=== PATIENT | male | born 1980 | race Two or more races ===

== ENCOUNTER 2020-05-27 13:07 | Inpatient (IN) | payer OTHER ==
[2020-05-27] MEDS ORDERED: BISMUTH SUBSALICYLATE 524 MG/30 ML UD PO PRN (19:29)
[2020-05-27] MEDS ORDERED: MAGNESIUM CITRATE 300 ML BOTTLE PO PRN (19:29)
[2020-05-27] MEDS ORDERED: MAGNESIUM HYDROX 2400MG/30ML ORAL SUSPENSION 30 ML CUP PO PRN (19:29)
[2020-05-27] MEDS ORDERED: ACETAMINOPHEN 325 MG TABLET (FP) PO PRN ×2 (19:29)
[2020-05-27] MEDS ORDERED: MENTHOL/PHENOL 1 EACH UD MM PRN (19:29)
[2020-05-27] MEDS ORDERED: ONDANSETRON *ODT* 4 MG TABLET SL PRN (19:29)
[2020-05-27] MEDS ORDERED: chlordiazePOXIDE HCL 25 MG CAPSULE PO PRN (19:29)
[2020-05-27] MEDS ORDERED: METHOCARBAMOL 500 MG TABLET PO PRN (19:29)
[2020-05-27 19:31] VITALS: BMI 35.1
[2020-05-27] MEDS: chlordiazePOXIDE HCL 25 MG CAPSULE PO SCH (22:21)
[2020-05-27] MEDS: THIAMINE HCL 100 MG TABLET (FP) PO SCH (22:22)
[2020-05-27] MEDS: hydrOXYzine PAMOATE 25 MG CAPSULE (FP) PO SCH (22:22)
[2020-05-27] MEDS: MELATONIN 5 MG TABLETS PO SCH (22:22)
[2020-05-28] MEDS ORDERED: METHADONE PO ONE (06:00)
[2020-05-28] MEDS ORDERED: METHADONE HCL 10 MG TABLET PO ONE (06:00)
[2020-05-28] MEDS: chlordiazePOXIDE HCL 25 MG CAPSULE PO SCH ×4 (06:49→22:26)
[2020-05-28] MEDS: hydrOXYzine PAMOATE 25 MG CAPSULE (FP) PO SCH ×5 (06:50→22:26)
[2020-05-28] MEDS ORDERED: METHADONE HCL 5 MG TABLET ONE (07:27)
[2020-05-28] MEDS ORDERED: METHADONE HCL 40 MG DISPERSABLE TABLET ONE (07:27)
[2020-05-28] MEDS ORDERED: METHADONE HCL 10 MG TABLET ONE (07:27)
[2020-05-28] MEDS ORDERED: METHADONE 80 MG, METHADONE 20 MG, METHADONE 5 MG PO ONE (07:30)
[2020-05-28] MEDS: PRENATAL VITAMINS W/ FOLIC ACID TABLET (FP) PO SCH (10:19)
[2020-05-28 12:45] LABS: HEMATOCRIT 37.1 % (35.4-49); HEMOGLOBIN 12.3 GM/dL (11.7-16.9); MCH 26.8 pg (25.7-33.7); MCHC 33.1 g/dl (32.0-35.9); MEAN CELL VOLUME 81.1 fl (80-96); MEAN PLT VOLUME 9.2 fl (7.5-11.1); PLATELET COUNT 263 K/MM3 (134-434); RBC 4.58 M/mm3 (4.00-5.60)
[2020-05-28 12:48] LABS: POTASSIUM 3.8 mmol/L (3.5-5.1)
[2020-05-28 12:49] LABS: CALCIUM 8.6 mg/dL (8.5-10.1)
[2020-05-28 12:50] LABS: ALBUMIN 3.1 g/dl (3.4-5.0); BLOOD UREA NITROGEN 9.4 mg/dL (7-18)
[2020-05-28 12:53] LABS: CREATININE 0.9 mg/dL (0.55-1.3)
[2020-05-28 12:55] LABS: BILIRUBIN,TOTAL 0.2 mg/dL (0.2-1); TOT PROT 7.4 g/dl (6.4-8.2)
[2020-05-28] MEDS: MELATONIN 5 MG TABLETS PO SCH (22:26)
[2020-05-28] MEDS: THIAMINE HCL 100 MG TABLET (FP) PO SCH (22:26)
[2020-05-29] MEDS ORDERED: METHADONE HCL 10 MG TABLET ONE (04:11)
[2020-05-29] MEDS ORDERED: METHADONE HCL 40 MG DISPERSABLE TABLET ONE (04:11)
[2020-05-29] MEDS ORDERED: METHADONE HCL 5 MG TABLET ONE (04:12)
[2020-05-29] MEDS ORDERED: chlordiazePOXIDE HCL 25 MG CAPSULE PO SCH (05:00)
[2020-05-29] MEDS: hydrOXYzine PAMOATE 25 MG CAPSULE (FP) PO SCH ×5 (05:49→22:03)
[2020-05-29] MEDS ORDERED: METHADONE HCL 10 MG TABLET PO ONE (06:00)
[2020-05-29] MEDS ORDERED: METHADONE 80 MG, METHADONE 20 MG, METHADONE 5 MG PO ONE (06:00)
[2020-05-29] MEDS ORDERED: METHADONE PO ONE (06:00)
[2020-05-29] MEDS: PRENATAL VITAMINS W/ FOLIC ACID TABLET (FP) PO SCH (10:01)
[2020-05-29] MEDS: diazePAM 5 MG TABLET PO SCH ×3 (10:02→22:03)
[2020-05-29] MEDS: NICOTINE POLACRILEX 2 MG GUM BUC PRN ×3 (11:33→19:19)
[2020-05-29] MEDS: diazePAM 5 MG TABLET PO PRN (14:19)
[2020-05-29] MEDS: THIAMINE HCL 100 MG TABLET (FP) PO SCH (22:02)
[2020-05-29] MEDS: MELATONIN 5 MG TABLETS PO SCH (22:02)
[2020-05-30] MEDS ORDERED: chlordiazePOXIDE HCL 10 MG CAPSULE PO PRN
[2020-05-30] MEDS ORDERED: chlordiazePOXIDE HCL 10 MG CAPSULE PO SCH (05:00)
[2020-05-30] MEDS: diazePAM 5 MG TABLET PO SCH ×4 (05:58→22:05)
[2020-05-30] MEDS: hydrOXYzine PAMOATE 25 MG CAPSULE (FP) PO SCH ×5 (05:59→22:04)
[2020-05-30] MEDS ORDERED: METHADONE HCL 10 MG TABLET PO SCH (08:30)
[2020-05-30] MEDS ORDERED: METHADONE HCL 10 MG TABLET ONE (08:44)
[2020-05-30] MEDS ORDERED: METHADONE HCL 40 MG DISPERSABLE TABLET ONE (08:46)
[2020-05-30] MEDS ORDERED: METHADONE HCL 5 MG TABLET ONE (08:47)
[2020-05-30] MEDS: METHADONE 80 MG, METHADONE 20 MG, METHADONE 5 MG PO SCH (08:48)
[2020-05-30] MEDS: PRENATAL VITAMINS W/ FOLIC ACID TABLET (FP) PO SCH (10:05)
[2020-05-30] MEDS: NICOTINE POLACRILEX 2 MG GUM BUC PRN ×2 (10:28→13:41)
[2020-05-30] MEDS: diazePAM 5 MG TABLET PO PRN (13:41)
[2020-05-30] MEDS: MAG HYDROX/AL HYDROX/SIMETH 30 ML UNIT-DOSE CUP PO PRN (17:14)
[2020-05-30] MEDS: THIAMINE HCL 100 MG TABLET (FP) PO SCH (22:04)
[2020-05-30] MEDS: MELATONIN 5 MG TABLETS PO SCH (22:04)
[2020-05-31] MEDS ORDERED: METHADONE HCL 10 MG TABLET ONE (04:26)
[2020-05-31] MEDS ORDERED: METHADONE HCL 40 MG DISPERSABLE TABLET ONE (04:26)
[2020-05-31] MEDS ORDERED: METHADONE HCL 5 MG TABLET ONE (04:27)
[2020-05-31] MEDS: IBUPROFEN 400 MG TABLET (FP) PO PRN (04:38)
[2020-05-31] MEDS ORDERED: chlordiazePOXIDE HCL 10 MG CAPSULE PO SCH (05:00)
[2020-05-31] MEDS: METHADONE 80 MG, METHADONE 20 MG, METHADONE 5 MG PO SCH (05:40)
[2020-05-31] MEDS: hydrOXYzine PAMOATE 25 MG CAPSULE (FP) PO SCH ×5 (05:42→22:45)
[2020-05-31] MEDS: diazePAM 5 MG TABLET PO SCH ×3 (05:42→22:45)
[2020-05-31] MEDS: PRENATAL VITAMINS W/ FOLIC ACID TABLET (FP) PO SCH (10:34)
[2020-05-31] MEDS: diazePAM 5 MG TABLET PO PRN (10:36)
[2020-05-31] MEDS: MAG HYDROX/AL HYDROX/SIMETH 30 ML UNIT-DOSE CUP PO PRN (14:09)
[2020-05-31] MEDS: INSULIN SLIDING SCALE (NOVOLOG) 1 VIAL SQ SCH ×2 (17:51→22:47)
[2020-05-31] MEDS: MELATONIN 5 MG TABLETS PO SCH (22:46)
[2020-05-31] MEDS: THIAMINE HCL 100 MG TABLET (FP) PO SCH (22:46)
[2020-06-01] MEDS: IBUPROFEN 400 MG TABLET (FP) PO PRN (01:08)
[2020-06-01] MEDS ORDERED: METHADONE HCL 10 MG TABLET ONE (04:59)
[2020-06-01] MEDS ORDERED: METHADONE HCL 40 MG DISPERSABLE TABLET ONE (04:59)
[2020-06-01] MEDS ORDERED: METHADONE HCL 5 MG TABLET ONE (04:59)
[2020-06-01] MEDS ORDERED: chlordiazePOXIDE HCL 10 MG CAPSULE PO ONE (05:00)
[2020-06-01] MEDS: METHADONE 80 MG, METHADONE 20 MG, METHADONE 5 MG PO SCH (05:36)
[2020-06-01] MEDS: hydrOXYzine PAMOATE 25 MG CAPSULE (FP) PO SCH (05:47)
[2020-06-01] MEDS ORDERED: diazePAM 5 MG TABLET PO SCH (06:00)
[2020-06-01 06:21] VITALS: TEMP 97.1
[2020-06-01] MEDS ORDERED: INSULIN (NOVOLOG) ASPART 100 UNITS/ML 10ML VIAL ONE (07:52)
[2020-06-01] MEDS: INSULIN SLIDING SCALE (NOVOLOG) 1 VIAL SQ SCH (07:58)
[2020-06-01] MEDS ORDERED: metFORMIN HCL 500 MG TABLET (FP) PO ONE (09:00)
[2020-06-01 09:44] VITALS: BP 127/65; PULSE 89
[2020-06-01] MEDS ORDERED: metFORMIN HCL 500 MG TABLET (FP) PO SCH (16:30)
[2020-06-02] MEDS ORDERED: diazePAM 5 MG TABLET PO ONE (06:00)
== END 2020-06-01 09:53 | disposition other institution (70) | DRG 773 ==
LOC: YASAS 13:07 → Y6N 19:39
PROVIDERS: ADMIT Allergy & Immunology; ATTEND Allergy & Immunology
PROC: HZ2ZZZZ Detoxification Services for Substance Abuse Treatment (ICD-10-PCS; principal; 2020-05-27)
DX: F10.230 Alcohol dependence with withdrawal, uncomplicated (principal); F11.20 Opioid dependence, uncomplicated; F14.20 Cocaine dependence, uncomplicated; F12.20 Cannabis dependence, uncomplicated; F17.210 Nicotine dependence, cigarettes, uncomplicated; F19.24 Other psychoactive substance dependence with psychoactive substance-induced mood disorder; F31.9 Bipolar disorder, unspecified; B18.2 Chronic viral hepatitis C; E11.9 Type 2 diabetes mellitus without complications; Z79.84 Long term (current) use of oral hypoglycemic drugs; Z62.810 Personal history of physical and sexual abuse in childhood
CPT/HCPCS: 36415; 80053; 82947; 82962; 83036; 85027; 86780; C9803; U0003

== ENCOUNTER 2022-01-18 14:32 | Inpatient (IN) | payer OTHER ==
[2022-01-18 15:48] VITALS: BMI 30.7
[2022-01-18] MEDS ORDERED: guaiFENesin 200 MG/10 ML 10 ML UNIT-DOSE CUPS PO PRN (18:12)
[2022-01-18] MEDS ORDERED: MAGNESIUM CITRATE 300 ML BOTTLE PO PRN (18:12)
[2022-01-18] MEDS ORDERED: ACETAMINOPHEN 325 MG TABLET (FP) PO PRN (18:12)
[2022-01-18] MEDS ORDERED: BENZOCAINE/MENTHOL (CHLORASEPTIC ) LOZENGE MM PRN (18:12)
[2022-01-18] MEDS ORDERED: NALOXONE HCL (KLOXXADO) 8 MG SPRAY NS PRN (18:12)
[2022-01-18] MEDS ORDERED: P-EPHED 60MG/TRIPROLIDI 2.5MG TABLET PO PRN (18:12)
[2022-01-18] MEDS ORDERED: MAG HYDROX/AL HYDROX/SIMETH 30 ML UNIT-DOSE CUP PO PRN (18:12)
[2022-01-18] MEDS ORDERED: LOPERAMIDE HCL 2 MG CAPSULE PO PRN (18:12)
[2022-01-18] MEDS ORDERED: IBUPROFEN 400 MG TABLET (FP) PO PRN (18:12)
[2022-01-18] MEDS ORDERED: NALOXONE HCL 0.4 MG/ML VIAL IM PRN (18:12)
[2022-01-18] MEDS ORDERED: MAGNESIUM HYDROX 2400MG/30ML ORAL SUSPENSION 30 ML CUP PO PRN (18:12)
[2022-01-18] MEDS ORDERED: FOLIC ACID 1 MG TABLET (FP) PO SCH (18:45)
[2022-01-18] MEDS ORDERED: FERROUS SO4 325 MG TABLET (FP) PO SCH (18:45)
[2022-01-18] MEDS: INSULIN SLIDING SCALE (NOVOLOG) 1 VIAL SQ SCH ×2 (21:45→21:50)
[2022-01-18] MEDS: THIAMINE HCL 100 MG TABLET (FP) PO SCH (21:45)
[2022-01-18] MEDS: FERROUS SO4 325 MG TABLET (FP) PO SCH (21:46)
[2022-01-18] MEDS: FOLIC ACID 1 MG TABLET (FP) PO SCH (21:46)
[2022-01-18] MEDS ORDERED: TUBERCULIN PPD 5 TU/0.1ML VIAL ID ONE (21:53)
[2022-01-18] MEDS: DOXYCYCLINE HYCLATE 100 MG TABLET PO SCH (21:56)
[2022-01-18] MEDS: NICOTINE 10 MG CARTRIDGE (INHALER) IH PRN (21:58)
[2022-01-18] MEDS ORDERED: MELATONIN 5 MG TABLETS PO SCH (22:00)
[2022-01-18] MEDS ORDERED: DOXYCYCLINE HYCLATE 100 MG CAPSULE PO SCH (22:00)
[2022-01-18] MEDS ORDERED: PATIENT'S OWN MEDICATION (NON-FORMULARY) (Ascorbic Acid [Vitamin C] 500 MG Capsule) PO SCH (22:00)
[2022-01-18] MEDS ORDERED: BENZTROPINE MESYLATE 1 MG TABLET PO ONE (22:00)
[2022-01-18] MEDS: ASCORBIC ACID 500 MG TABLET (FP) PO SCH (23:39)
[2022-01-19] MEDS: INSULIN SLIDING SCALE (NOVOLOG) 1 VIAL SQ SCH ×4 (06:50→22:03)
[2022-01-19 06:59] VITALS: RESP 18
[2022-01-19] MEDS: metFORMIN HCL 500 MG TABLET (FP) PO SCH ×2 (07:45→16:27)
[2022-01-19] MEDS: FERROUS SO4 325 MG TABLET (FP) PO SCH (07:45)
[2022-01-19] MEDS ORDERED: methaDONE HCL 40 MG DISPERSABLE TABLET PO SCH (07:45)
[2022-01-19] MEDS: DOXYCYCLINE HYCLATE 100 MG TABLET PO SCH ×2 (10:25→17:08)
[2022-01-19] MEDS: FOLIC ACID 1 MG TABLET (FP) PO SCH (10:25)
[2022-01-19] MEDS: ASCORBIC ACID 500 MG TABLET (FP) PO SCH ×2 (10:25→23:37)
[2022-01-19] MEDS: PRENATAL VITAMINS W/ FOLIC ACID TABLET (FP) PO SCH (10:25)
[2022-01-19 12:13] LABS: HEMOGLOBIN 9.7 GM/dL (11.7-16.9); MCHC 30.2 g/dl (32.0-35.9); MEAN PLT VOLUME 8.1 fl (7.5-11.1); PLATELET COUNT 465 10^3/uL (134-434); RBC 4.84 M/mm3 (4.00-5.60); RDW 17.9 % (11.9-15.9); WHITE BLOOD COUNT 8.8 K/mm3 (4.0-10.0)
[2022-01-19 12:19] LABS: PH,URINE 7.5 (5.0-8.0); URINE APPEARANCE CLEAR; URINE BILIRUBIN NEGATIVE (NEGATIVE); URINE COLOR YELLOW; URINE GLUCOSE (UA) NEGATIVE (NEGATIVE); URINE KETONE NEGATIVE (NEGATIVE); URINE LEUK ESTERASE NEGATIVE (NEGATIVE); URINE NITRITE NEGATIVE (NEGATIVE); URINE PROTEIN NEGATIVE (NEGATIVE); URINE UROBILINOGEN 0.2 mg/dL (0.2-1.0)
[2022-01-19 13:06] LABS: CALCIUM 8.7 mg/dL (8.5-10.1)
[2022-01-19 13:08] LABS: ALBUMIN 2.9 g/dl (3.4-5.0); BLOOD UREA NITROGEN 14.3 mg/dL (7-18)
[2022-01-19 13:11] LABS: CREATININE 0.8 mg/dL (0.55-1.3)
[2022-01-19 13:13] LABS: BILIRUBIN,TOTAL 0.2 mg/dL (0.2-1); TOT PROT 7.9 g/dl (6.4-8.2)
[2022-01-19] MEDS: hydrOXYzine PAMOATE 25 MG CAPSULE (FP) PO PRN (16:26)
[2022-01-19] MEDS: MELATONIN 5 MG TABLETS PO SCH (22:02)
[2022-01-19] MEDS: THIAMINE HCL 100 MG TABLET (FP) PO SCH (22:02)
[2022-01-19] MEDS: risperiDONE 1 MG TABLET PO SCH (22:02)
[2022-01-20] MEDS: INSULIN SLIDING SCALE (NOVOLOG) 1 VIAL SQ SCH ×4 (06:17→21:40)
[2022-01-20] MEDS: metFORMIN HCL 500 MG TABLET (FP) PO SCH ×2 (06:18→17:00)
[2022-01-20] MEDS: FERROUS SO4 325 MG TABLET (FP) PO SCH (07:04)
[2022-01-20] MEDS: ASCORBIC ACID 500 MG TABLET (FP) PO SCH ×2 (09:54→21:39)
[2022-01-20] MEDS: FOLIC ACID 1 MG TABLET (FP) PO SCH (09:55)
[2022-01-20] MEDS: PRENATAL VITAMINS W/ FOLIC ACID TABLET (FP) PO SCH (09:55)
[2022-01-20] MEDS: DOXYCYCLINE HYCLATE 100 MG TABLET PO SCH ×2 (09:55→17:01)
[2022-01-20] MEDS: hydrOXYzine PAMOATE 25 MG CAPSULE (FP) PO PRN (12:30)
[2022-01-20] MEDS: METHOCARBAMOL 500 MG TABLET PO PRN ×2 (14:24→21:38)
[2022-01-20] MEDS: NICOTINE 10 MG CARTRIDGE (INHALER) IH PRN (15:12)
[2022-01-20] MEDS: risperiDONE 1 MG TABLET PO SCH (21:38)
[2022-01-20] MEDS: MELATONIN 5 MG TABLETS PO SCH (21:39)
[2022-01-20] MEDS: THIAMINE HCL 100 MG TABLET (FP) PO SCH (21:40)
[2022-01-21] MEDS ORDERED: methaDONE HCL 40 MG DISPERSABLE TABLET ONE ×2 (06:27→06:38)
[2022-01-21] MEDS: INSULIN SLIDING SCALE (NOVOLOG) 1 VIAL SQ SCH ×4 (06:44→21:21)
[2022-01-21] MEDS: metFORMIN HCL 500 MG TABLET (FP) PO SCH ×2 (06:44→17:30)
[2022-01-21] MEDS: FERROUS SO4 325 MG TABLET (FP) PO SCH (07:04)
[2022-01-21] MEDS: PRENATAL VITAMINS W/ FOLIC ACID TABLET (FP) PO SCH (10:29)
[2022-01-21] MEDS: DOXYCYCLINE HYCLATE 100 MG TABLET PO SCH ×2 (10:30→17:30)
[2022-01-21] MEDS: ASCORBIC ACID 500 MG TABLET (FP) PO SCH ×2 (10:30→21:21)
[2022-01-21] MEDS: FOLIC ACID 1 MG TABLET (FP) PO SCH (10:31)
[2022-01-21] MEDS: hydrOXYzine PAMOATE 25 MG CAPSULE (FP) PO PRN (10:31)
[2022-01-21] MEDS: METHOCARBAMOL 500 MG TABLET PO PRN ×2 (14:44→21:21)
[2022-01-21] MEDS: MELATONIN 5 MG TABLETS PO SCH (21:21)
[2022-01-21] MEDS: THIAMINE HCL 100 MG TABLET (FP) PO SCH (21:21)
[2022-01-21] MEDS: risperiDONE 1 MG TABLET PO SCH (21:21)
[2022-01-22] MEDS: metFORMIN HCL 500 MG TABLET (FP) PO SCH ×2 (06:16→16:25)
[2022-01-22] MEDS: INSULIN SLIDING SCALE (NOVOLOG) 1 VIAL SQ SCH ×4 (06:16→21:28)
[2022-01-22] MEDS: FERROUS SO4 325 MG TABLET (FP) PO SCH (07:01)
[2022-01-22] MEDS: PRENATAL VITAMINS W/ FOLIC ACID TABLET (FP) PO SCH (09:50)
[2022-01-22] MEDS: METHOCARBAMOL 500 MG TABLET PO PRN ×2 (09:50→21:27)
[2022-01-22] MEDS: ASCORBIC ACID 500 MG TABLET (FP) PO SCH ×2 (09:50→21:26)
[2022-01-22] MEDS: DOXYCYCLINE HYCLATE 100 MG TABLET PO SCH ×2 (09:50→18:55)
[2022-01-22] MEDS: hydrOXYzine PAMOATE 25 MG CAPSULE (FP) PO PRN (09:50)
[2022-01-22] MEDS: FOLIC ACID 1 MG TABLET (FP) PO SCH (09:50)
[2022-01-22] MEDS: NICOTINE 10 MG CARTRIDGE (INHALER) IH PRN (10:06)
[2022-01-22] MEDS ORDERED: methaDONE HCL 10 MG TABLET PO ONE ×2 (15:11→15:12)
[2022-01-22] MEDS: THIAMINE HCL 100 MG TABLET (FP) PO SCH (21:25)
[2022-01-22] MEDS: risperiDONE 1 MG TABLET PO SCH (21:26)
[2022-01-22] MEDS: MELATONIN 5 MG TABLETS PO SCH (21:26)
[2022-01-23] MEDS ORDERED: methaDONE HCL 10 MG TABLET PO ONE (06:00)
[2022-01-23] MEDS: metFORMIN HCL 500 MG TABLET (FP) PO SCH ×2 (06:34→16:36)
[2022-01-23] MEDS: INSULIN SLIDING SCALE (NOVOLOG) 1 VIAL SQ SCH ×4 (06:34→21:20)
[2022-01-23] MEDS: PRENATAL VITAMINS W/ FOLIC ACID TABLET (FP) PO SCH (10:19)
[2022-01-23] MEDS: DOXYCYCLINE HYCLATE 100 MG TABLET PO SCH ×2 (10:20→18:10)
[2022-01-23] MEDS: ASCORBIC ACID 500 MG TABLET (FP) PO SCH ×2 (10:20→21:25)
[2022-01-23] MEDS: FOLIC ACID 1 MG TABLET (FP) PO SCH (10:20)
[2022-01-23] MEDS: FERROUS SO4 325 MG TABLET (FP) PO SCH (10:20)
[2022-01-23] MEDS: hydrOXYzine PAMOATE 25 MG CAPSULE (FP) PO PRN (13:50)
[2022-01-23] MEDS: NICOTINE 10 MG CARTRIDGE (INHALER) IH PRN (13:50)
[2022-01-23] MEDS: METHOCARBAMOL 500 MG TABLET PO PRN (21:20)
[2022-01-23] MEDS: risperiDONE 1 MG TABLET PO SCH (21:20)
[2022-01-23] MEDS: THIAMINE HCL 100 MG TABLET (FP) PO SCH (21:20)
[2022-01-23] MEDS: MELATONIN 5 MG TABLETS PO SCH (21:20)
[2022-01-24] MEDS ORDERED: methaDONE HCL 10 MG TABLET PO ONE (06:00)
[2022-01-24] MEDS: metFORMIN HCL 500 MG TABLET (FP) PO SCH ×2 (06:26→16:30)
[2022-01-24] MEDS: INSULIN SLIDING SCALE (NOVOLOG) 1 VIAL SQ SCH ×3 (06:26→16:32)
[2022-01-24] MEDS: FERROUS SO4 325 MG TABLET (FP) PO SCH (07:02)
[2022-01-24] MEDS: NICOTINE 10 MG CARTRIDGE (INHALER) IH PRN (07:02)
[2022-01-24] MEDS: PRENATAL VITAMINS W/ FOLIC ACID TABLET (FP) PO SCH (10:07)
[2022-01-24] MEDS: FOLIC ACID 1 MG TABLET (FP) PO SCH (10:07)
[2022-01-24] MEDS: ASCORBIC ACID 500 MG TABLET (FP) PO SCH ×2 (10:07→21:23)
[2022-01-24] MEDS: DOXYCYCLINE HYCLATE 100 MG TABLET PO SCH ×2 (10:07→17:45)
[2022-01-24] MEDS: METHOCARBAMOL 500 MG TABLET PO PRN (21:23)
[2022-01-24] MEDS: risperiDONE 1 MG TABLET PO SCH (21:23)
[2022-01-24] MEDS: THIAMINE HCL 100 MG TABLET (FP) PO SCH (21:23)
[2022-01-24] MEDS: MELATONIN 5 MG TABLETS PO SCH (21:23)
[2022-01-25] MEDS: metFORMIN HCL 500 MG TABLET (FP) PO SCH ×2 (05:59→19:19)
[2022-01-25] MEDS ORDERED: methaDONE HCL 10 MG TABLET PO ONE (06:00)
[2022-01-25] MEDS: INSULIN SLIDING SCALE (NOVOLOG) 1 VIAL SQ SCH ×2 (06:01→19:19)
[2022-01-25] MEDS: FERROUS SO4 325 MG TABLET (FP) PO SCH (07:04)
[2022-01-25] MEDS: PRENATAL VITAMINS W/ FOLIC ACID TABLET (FP) PO SCH (09:59)
[2022-01-25] MEDS: DOXYCYCLINE HYCLATE 100 MG TABLET PO SCH ×2 (09:59→19:20)
[2022-01-25] MEDS: ASCORBIC ACID 500 MG TABLET (FP) PO SCH ×2 (10:00→22:36)
[2022-01-25] MEDS: FOLIC ACID 1 MG TABLET (FP) PO SCH (10:00)
[2022-01-25] MEDS: NICOTINE 10 MG CARTRIDGE (INHALER) IH PRN (10:07)
[2022-01-25 13:14] VITALS: BP 137/86; PULSE 86; TEMP 96.9
[2022-01-25] MEDS: risperiDONE 1 MG TABLET PO SCH (22:36)
[2022-01-25] MEDS: MELATONIN 5 MG TABLETS PO SCH (22:36)
[2022-01-25] MEDS: THIAMINE HCL 100 MG TABLET (FP) PO SCH (22:36)
[2022-01-26] MEDS ORDERED: methaDONE HCL 10 MG TABLET PO ONE (06:00)
[2022-01-27] MEDS ORDERED: methaDONE HCL 10 MG TABLET PO ONE (06:00)
[2022-01-28] MEDS ORDERED: methaDONE HCL 10 MG TABLET PO SCH (06:00)
== END 2022-01-26 03:40 | disposition short-term general hospital (02) | DRG 772 ==
LOC: YASAS 14:32 → Y3W 19:29
PROVIDERS: ADMIT Allergy & Immunology; ATTEND Psychiatry & Neurology Pain Medicine
PROC: HZ42ZZZ Group Counseling for Substance Abuse Treatment, Cognitive-Behavioral (ICD-10-PCS; principal; 2022-01-18)
DX: F11.20 Opioid dependence, uncomplicated (principal); F10.20 Alcohol dependence, uncomplicated; F14.20 Cocaine dependence, uncomplicated; F12.20 Cannabis dependence, uncomplicated; F17.210 Nicotine dependence, cigarettes, uncomplicated; F19.282 Other psychoactive substance dependence with psychoactive substance-induced sleep disorder; F39 Unspecified mood [affective] disorder; E11.622 Type 2 diabetes mellitus with other skin ulcer; L97.228 Non-pressure chronic ulcer of left calf with other specified severity; L97.211 Non-pressure chronic ulcer of right calf limited to breakdown of skin; L03.115 Cellulitis of right lower limb; L03.116 Cellulitis of left lower limb
CPT/HCPCS: 36415; 80053; 81003; 82962; 85027; 86780; C9803-CS; J2794; U0003; U0005

== ENCOUNTER 2022-01-25 13:11 | Inpatient (IN) | payer OTHER ==
[2022-01-25] MEDS ORDERED: CLINDAMYCIN 600MG PREMIX IVPB 600 MG/50 ML BAG IVPB ONE ×2 (14:49→16:25)
[2022-01-25 16:58] LABS: BASO % 0.3 % (0-2.0); EOS % 0.4 % (0-4.5); HEMOGLOBIN 10.6 GM/dL (11.7-16.9); LYMPH % 24.2 % (8-40); MCH 20.6 pg (25.7-33.7); MCHC 31.1 g/dl (32.0-35.9); MEAN CELL VOLUME 66.3 fl (80-96); NEUT % 69.1 % (42.8-82.8); PLATELET COUNT 437 10^3/uL (134-434); RBC 5.12 M/mm3 (4.00-5.60); RDW 19.3 % (11.9-15.9); WHITE BLOOD COUNT 11.4 K/mm3 (4.0-10.0)
[2022-01-25 17:16] LABS: CALCIUM 9.3 mg/dL (8.5-10.1)
[2022-01-25 17:17] LABS: BLOOD UREA NITROGEN 16.7 mg/dL (7-18)
[2022-01-25 17:20] LABS: BILIRUBIN,TOTAL 0.5 mg/dL (0.2-1); CREATININE 0.8 mg/dL (0.55-1.3)
[2022-01-25 17:22] LABS: ALBUMIN 3.5 g/dl (3.4-5.0)
[2022-01-25 17:33] LABS: ANISOCYTOSIS 3+; MACROCYTOSIS 0; OVALOCYTE 2+
[2022-01-25 22:46] VITALS: BMI 28.9
[2022-01-26] MEDS ORDERED: VANCOMYCIN/WATER 1,250 MG/250 ML BAG IVPB ONE ×2 (02:33→05:30)
[2022-01-26] MEDS ORDERED: PIPERACILLIN/TAZOB 3.375 GM 3.375 GM in DEXTROSE 5%-WATER - 50 ML IVPB ONE ×3 (02:37→11:00)
[2022-01-26] MEDS ORDERED: LORazepam 1 MG TABLET PO PRN (02:45)
[2022-01-26] MEDS ORDERED: FOLIC ACID 5 MG/1 ML IVPB SCH (02:48)
[2022-01-26] MEDS: LORazepam 1 MG TABLET PO SCH ×4 (05:31→22:26)
[2022-01-26] MEDS ORDERED: [UNRECOGNIZED DRUG - OTHER] IM ONE (06:30)
[2022-01-26] MEDS ORDERED: THIAMINE HCL IVPB ONE (06:30)
[2022-01-26] MEDS ORDERED: THIAMINE HCL IM ONE (06:30)
[2022-01-26] MEDS ORDERED: [UNRECOGNIZED DRUG - OTHER] IVPB ONE (06:30)
[2022-01-26] MEDS ORDERED: SODIUM CHLORIDE IVPB ONE (06:30)
[2022-01-26] MEDS ORDERED: FOLIC ACID IVPB ONE (06:30)
[2022-01-26] MEDS ORDERED: SODIUM CHLORIDE IM ONE (06:30)
[2022-01-26] MEDS ORDERED: FOLIC ACID IM ONE (06:30)
[2022-01-26] MEDS ORDERED: FOLIC ACID INJECTION - 1 MG, THIAMINE HCL 100 MG, MULTIVIT INJECTION ADULT 10 ML in SOD... IVPB ONE (06:31)
[2022-01-26] MEDS: ENOXAPARIN NA (PORCINE) 40 MG/0.4 ML DISP.SYRIN SQ SCH (09:09)
[2022-01-26] MEDS ORDERED: methaDONE HCL 10 MG TABLET (FOR DETOX USE ONLY) PO SCH (10:00)
[2022-01-26] MEDS: ACETAMINOPHEN 1000 MG/100 ML BAG IVPB PRN (20:07)
[2022-01-27] MEDS: LORazepam 1 MG TABLET PO SCH ×4 (05:41→22:34)
[2022-01-27] MEDS ORDERED: VANCOMYCIN/WATER 1,250 MG/250 ML BAG IVPB ONE (06:00)
[2022-01-27] MEDS: CEFAZOLIN SODIUM 2 GM in DEXTROSE 5%-WATER 100 ML IVPB SCH ×2 (09:41→16:59)
[2022-01-27] MEDS: DOXYCYCLINE INJECTION 100 MG in DEXTROSE 5%-WATER 100 ML IVPB SCH ×2 (09:41→22:35)
[2022-01-27] MEDS: THIAMINE HCL 200 MG/2 ML VIAL IVPB SCH (09:42)
[2022-01-27] MEDS: FOLIC ACID 1 MG TABLET (FP) PO SCH (09:42)
[2022-01-27] MEDS: ENOXAPARIN NA (PORCINE) 40 MG/0.4 ML DISP.SYRIN SQ SCH (09:42)
[2022-01-27] MEDS: ACETAMINOPHEN 1000 MG/100 ML BAG IVPB PRN (13:50)
[2022-01-27 14:22] LABS: BASO % 0.6 % (0-2.0); EOS % 0.5 % (0-4.5); HEMATOCRIT 35.8 % (35.4-49); HEMOGLOBIN 10.9 GM/dL (11.7-16.9); LYMPH % 23.9 % (8-40); MCH 20.4 pg (25.7-33.7); MCHC 30.5 g/dl (32.0-35.9); MEAN CELL VOLUME 66.8 fl (80-96); MEAN PLT VOLUME 8.2 fl (7.5-11.1); MONO % 5.2 % (3.8-10.2); NEUT % 69.8 % (42.8-82.8); PLATELET COUNT 424 10^3/uL (134-434); RBC 5.37 M/mm3 (4.00-5.60); RDW 19.7 % (11.9-15.9); WHITE BLOOD COUNT 7.9 K/mm3 (4.0-10.0)
[2022-01-27 14:50] LABS: BLOOD UREA NITROGEN 16.5 mg/dL (7-18); CALCIUM 9.5 mg/dL (8.5-10.1)
[2022-01-27 14:53] LABS: CREATININE 0.8 mg/dL (0.55-1.3); PHOSPHOROUS 4.5 mg/dL (2.5-4.9)
[2022-01-28] MEDS ORDERED: LORazepam 0.5 MG TABLET PO PRN
[2022-01-28] MEDS: CEFAZOLIN SODIUM 2 GM in DEXTROSE 5%-WATER 100 ML IVPB SCH ×3 (01:22→17:33)
[2022-01-28] MEDS ORDERED: LORazepam 0.5 MG TABLET PO SCH (05:00)
[2022-01-28] MEDS: FOLIC ACID 1 MG TABLET (FP) PO SCH (10:27)
[2022-01-28] MEDS: ENOXAPARIN NA (PORCINE) 40 MG/0.4 ML DISP.SYRIN SQ SCH (10:27)
[2022-01-28] MEDS: DOXYCYCLINE INJECTION 100 MG in DEXTROSE 5%-WATER 100 ML IVPB SCH ×2 (10:28→21:11)
[2022-01-28] MEDS: THIAMINE HCL 200 MG/2 ML VIAL IVPB SCH (10:31)
[2022-01-29] MEDS: CEFAZOLIN SODIUM 2 GM in DEXTROSE 5%-WATER 100 ML IVPB SCH ×2 (01:21→09:25)
[2022-01-29] MEDS ORDERED: LORazepam 0.5 MG TABLET PO ONE (05:00)
[2022-01-29] MEDS: DOXYCYCLINE INJECTION 100 MG in DEXTROSE 5%-WATER 100 ML IVPB SCH (09:25)
[2022-01-29] MEDS: FOLIC ACID 1 MG TABLET (FP) PO SCH (09:25)
[2022-01-29] MEDS: ENOXAPARIN NA (PORCINE) 40 MG/0.4 ML DISP.SYRIN SQ SCH (09:25)
[2022-01-29] MEDS: THIAMINE HCL 200 MG/2 ML VIAL IVPB SCH (09:26)
[2022-01-29] MEDS: PIPERACILLIN/TAZOB 3.375 GM 3.375 GM in DEXTROSE 5%-WATER - 50 ML IVPB SCH ×2 (14:20→17:16)
[2022-01-29] MEDS ORDERED: traZODone HCL 50 MG TABLET (FP) PO ONE (20:00)
[2022-01-29] MEDS: MELATONIN 5 MG TABLETS PO SCH (21:15)
[2022-01-30] MEDS: PIPERACILLIN/TAZOB 3.375 GM 3.375 GM in DEXTROSE 5%-WATER - 50 ML IVPB SCH ×3 (01:03→17:00)
[2022-01-30 08:06] LABS: HEMATOCRIT 36.4 % (35.4-49); HEMOGLOBIN 11.3 GM/dL (11.7-16.9); MCH 20.9 pg (25.7-33.7); MCHC 31.1 g/dl (32.0-35.9); MEAN CELL VOLUME 67.3 fl (80-96); MEAN PLT VOLUME 8.3 fl (7.5-11.1); PLATELET COUNT 382 10^3/uL (134-434); RBC 5.41 M/mm3 (4.00-5.60)
[2022-01-30 08:20] LABS: CALCIUM 9.6 mg/dL (8.5-10.1)
[2022-01-30 08:21] LABS: ALBUMIN 3.6 g/dl (3.4-5.0); BLOOD UREA NITROGEN 17.3 mg/dL (7-18); MAGNESIUM 2.2 mg/dL (1.8-2.4)
[2022-01-30 08:24] LABS: CREATININE 0.9 mg/dL (0.55-1.3); PHOSPHOROUS 4.2 mg/dL (2.5-4.9)
[2022-01-30 08:25] LABS: TOT PROT 9.1 g/dl (6.4-8.2)
[2022-01-30 08:26] LABS: BILIRUBIN,TOTAL 0.4 mg/dL (0.2-1)
[2022-01-30] MEDS: ENOXAPARIN NA (PORCINE) 40 MG/0.4 ML DISP.SYRIN SQ SCH (10:42)
[2022-01-30] MEDS: FOLIC ACID 1 MG TABLET (FP) PO SCH (10:42)
[2022-01-30] MEDS ORDERED: ACETAMINOPHEN 1000 MG/100 ML BAG IVPB ONE (10:44)
[2022-01-30] MEDS: THIAMINE HCL 200 MG/2 ML VIAL IVPB SCH (11:50)
[2022-01-30] MEDS: VANCOMYCIN/WATER 1250 MG 1,250 MG/250 ML BAG IVPB SCH (14:07)
[2022-01-30 21:18] LABS: BLOOD UREA NITROGEN 21.6 mg/dL (7-18)
[2022-01-30] MEDS: MELATONIN 5 MG TABLETS PO SCH (21:21)
[2022-01-31] MEDS: PIPERACILLIN/TAZOB 3.375 GM 3.375 GM in DEXTROSE 5%-WATER - 50 ML IVPB SCH ×3 (01:26→17:56)
[2022-01-31] MEDS: ENOXAPARIN NA (PORCINE) 40 MG/0.4 ML DISP.SYRIN SQ SCH (11:20)
[2022-01-31] MEDS: FOLIC ACID 1 MG TABLET (FP) PO SCH (11:20)
[2022-01-31] MEDS: THIAMINE HCL 200 MG/2 ML VIAL IVPB SCH (12:36)
[2022-01-31 13:08] LABS: GLIADIN ANTIBODY IGA 6 units (0-19); GLIADIN ANTIBODY IGG 2 units (0-19)
[2022-01-31] MEDS: VANCOMYCIN/WATER 1250 MG 1,250 MG/250 ML BAG IVPB SCH (13:30)
[2022-01-31] MEDS: predniSONE 20 MG TABLET (UD) PO SCH (16:57)
[2022-01-31] MEDS: ACETAMINOPHEN 325 MG TABLET (FP) PO PRN (19:03)
[2022-01-31] MEDS: MELATONIN 5 MG TABLETS PO SCH (22:11)
[2022-02-01] MEDS: PIPERACILLIN/TAZOB 3.375 GM 3.375 GM in DEXTROSE 5%-WATER - 50 ML IVPB SCH ×3 (02:05→18:07)
[2022-02-01] MEDS: ENOXAPARIN NA (PORCINE) 40 MG/0.4 ML DISP.SYRIN SQ SCH (09:13)
[2022-02-01] MEDS: predniSONE 20 MG TABLET (UD) PO SCH (09:13)
[2022-02-01] MEDS: FOLIC ACID 1 MG TABLET (FP) PO SCH (09:13)
[2022-02-01 09:34] LABS: BASO % 0.5 % (0-2.0); EOS % 0.1 % (0-4.5); HEMATOCRIT 35.8 % (35.4-49); HEMOGLOBIN 11.1 GM/dL (11.7-16.9); LYMPH % 16.5 % (8-40); MCH 21.1 pg (25.7-33.7); MEAN CELL VOLUME 68.1 fl (80-96); MEAN PLT VOLUME 8.5 fl (7.5-11.1); MONO % 5.1 % (3.8-10.2); NEUT % 77.8 % (42.8-82.8); PLATELET COUNT 374 10^3/uL (134-434); RBC 5.26 M/mm3 (4.00-5.60)
[2022-02-01 09:40] LABS: CALCIUM 9.7 mg/dL (8.5-10.1)
[2022-02-01 09:42] LABS: ALBUMIN 3.6 g/dl (3.4-5.0); BLOOD UREA NITROGEN 17.2 mg/dL (7-18)
[2022-02-01 09:44] LABS: CREATININE 0.8 mg/dL (0.55-1.3); PHOSPHOROUS 4.1 mg/dL (2.5-4.9)
[2022-02-01 09:46] LABS: BILIRUBIN,TOTAL 0.5 mg/dL (0.2-1); TOT PROT 8.9 g/dl (6.4-8.2)
[2022-02-01 10:21] LABS: ANISOCYTOSIS 3+; MACROCYTOSIS 0; OVALOCYTE 1+
[2022-02-01] MEDS: THIAMINE HCL 200 MG/2 ML VIAL IVPB SCH (10:37)
[2022-02-01] MEDS: VANCOMYCIN/WATER 1250 MG 1,250 MG/250 ML BAG IVPB SCH (12:13)
[2022-02-01] MEDS: ACETAMINOPHEN 325 MG TABLET (FP) PO PRN (14:55)
[2022-02-01] MEDS: MELATONIN 5 MG TABLETS PO SCH (21:35)
[2022-02-02] MEDS: PIPERACILLIN/TAZOB 3.375 GM 3.375 GM in DEXTROSE 5%-WATER - 50 ML IVPB SCH ×3 (02:00→17:58)
[2022-02-02] MEDS: predniSONE 20 MG TABLET (UD) PO SCH (10:06)
[2022-02-02] MEDS: THIAMINE HCL 200 MG/2 ML VIAL IVPB SCH (10:07)
[2022-02-02] MEDS: FOLIC ACID 1 MG TABLET (FP) PO SCH (10:07)
[2022-02-02] MEDS: VANCOMYCIN/WATER 1250 MG 1,250 MG/250 ML BAG IVPB SCH (16:13)
[2022-02-02] MEDS: ACETAMINOPHEN 325 MG TABLET (FP) PO PRN (21:31)
[2022-02-02] MEDS: MELATONIN 5 MG TABLETS PO SCH (21:31)
[2022-02-03] MEDS: PIPERACILLIN/TAZOB 3.375 GM 3.375 GM in DEXTROSE 5%-WATER - 50 ML IVPB SCH ×3 (02:09→18:28)
[2022-02-03] MEDS: THIAMINE HCL 200 MG/2 ML VIAL IVPB SCH (09:28)
[2022-02-03] MEDS: predniSONE 20 MG TABLET (UD) PO SCH (09:28)
[2022-02-03] MEDS: FOLIC ACID 1 MG TABLET (FP) PO SCH (09:28)
[2022-02-03] MEDS: VANCOMYCIN PREMIX 1.5 GM 1,500 MG/300 ML BAG IVPB SCH (14:54)
[2022-02-03] MEDS: ACETAMINOPHEN 325 MG TABLET (FP) PO PRN (18:25)
[2022-02-03] MEDS: MELATONIN 5 MG TABLETS PO SCH (22:00)
[2022-02-03 22:02] VITALS: RESP 20
[2022-02-04] MEDS: PIPERACILLIN/TAZOB 3.375 GM 3.375 GM in DEXTROSE 5%-WATER - 50 ML IVPB SCH ×2 (01:26→10:32)
[2022-02-04] MEDS: VANCOMYCIN PREMIX 1.5 GM 1,500 MG/300 ML BAG IVPB SCH ×2 (02:24→12:50)
[2022-02-04] MEDS ORDERED: methaDONE HCL 10 MG TABLET (FOR DETOX USE ONLY) PO ONE (09:26)
[2022-02-04] MEDS: THIAMINE HCL 200 MG/2 ML VIAL IVPB SCH (10:30)
[2022-02-04] MEDS: predniSONE 20 MG TABLET (UD) PO SCH (10:30)
[2022-02-04] MEDS: FOLIC ACID 1 MG TABLET (FP) PO SCH (10:31)
[2022-02-04 12:31] VITALS: BP 128/73; PULSE 67; TEMP 98
== END 2022-02-04 15:56 | disposition other institution (70) | DRG 383 ==
LOC: JER 13:11 → JERBED 17:24 → J7W 21:11
PROVIDERS: ADMIT Internal Medicine
PROC: 0HBLXZX Excision of Left Lower Leg Skin, External Approach, Diagnostic (ICD-10-PCS; principal; 2022-01-31)
DX: L03.115 Cellulitis of right lower limb (principal); E11.9 Type 2 diabetes mellitus without complications; F14.10 Cocaine abuse, uncomplicated; F10.10 Alcohol abuse, uncomplicated; Z79.84 Long term (current) use of oral hypoglycemic drugs; F11.20 Opioid dependence, uncomplicated; D50.9 Iron deficiency anemia, unspecified; L03.116 Cellulitis of left lower limb; D63.8 Anemia in other chronic diseases classified elsewhere; F32.A Depression, unspecified; F41.9 Anxiety disorder, unspecified; L97.821 Non-pressure chronic ulcer of other part of left lower leg limited to breakdown of skin; L97.811 Non-pressure chronic ulcer of other part of right lower leg limited to breakdown of skin
CPT/HCPCS: 0241U-QW; 36415; 73590-TC-LT-FY; 73590-TC-RT-FY; 73701-TC-RT; 76937; 80048; 80053; 83516; 83735; 84100; 85025; 85027; 87040; 87070; 87077; 87186; 87205; 88305-TC; 93005; 93010; 99285-25; G0480; Q9967

== ENCOUNTER 2022-02-04 16:22 | Inpatient (IN) | payer OTHER ==
[2022-02-04 17:18] VITALS: BMI 29.5
[2022-02-04] MEDS ORDERED: ACETAMINOPHEN 325 MG TABLET (FP) PO PRN (19:03)
[2022-02-04] MEDS ORDERED: MAGNESIUM CITRATE 300 ML BOTTLE PO PRN (19:03)
[2022-02-04] MEDS ORDERED: LOPERAMIDE HCL 2 MG CAPSULE PO PRN (19:03)
[2022-02-04] MEDS ORDERED: guaiFENesin 200 MG/10 ML 10 ML UNIT-DOSE CUPS PO PRN (19:03)
[2022-02-04] MEDS ORDERED: MAGNESIUM HYDROX 2400MG/30ML ORAL SUSPENSION 30 ML CUP PO PRN (19:03)
[2022-02-04] MEDS ORDERED: P-EPHED 60MG/TRIPROLIDI 2.5MG TABLET PO PRN (19:03)
[2022-02-04] MEDS ORDERED: MAG HYDROX/AL HYDROX/SIMETH 30 ML UNIT-DOSE CUP PO PRN (19:03)
[2022-02-04] MEDS: THIAMINE HCL 100 MG TABLET (FP) PO SCH (22:17)
[2022-02-04] MEDS: hydrOXYzine PAMOATE 25 MG CAPSULE (FP) PO PRN (22:17)
[2022-02-04] MEDS: MELATONIN 5 MG TABLETS PO SCH (22:18)
[2022-02-04] MEDS: INSULIN SLIDING SCALE (NOVOLOG) 1 VIAL SQ SCH (22:19)
[2022-02-04] MEDS: SULFAMETHOXAZOLE/TRIMETHOPRIM 800MG/160MG D.S. TABLET PO SCH (22:21)
[2022-02-05 00:36] LABS: PH,URINE 5.5 (5.0-8.0); URINE APPEARANCE CLEAR; URINE BILIRUBIN NEGATIVE (NEGATIVE); URINE COLOR YELLOW; URINE GLUCOSE (UA) NEGATIVE (NEGATIVE); URINE KETONE NEGATIVE (NEGATIVE); URINE LEUK ESTERASE NEGATIVE (NEGATIVE); URINE NITRITE NEGATIVE (NEGATIVE); URINE PROTEIN NEGATIVE (NEGATIVE); URINE UROBILINOGEN 0.2 mg/dL (0.2-1.0)
[2022-02-05] MEDS: INSULIN SLIDING SCALE (NOVOLOG) 1 VIAL SQ SCH ×2 (06:28→16:54)
[2022-02-05] MEDS ORDERED: methaDONE HCL 10 MG TABLET PO SCH (09:15)
[2022-02-05] MEDS ORDERED: DOXYCYCLINE HYCLATE 100 MG CAPSULE PO SCH (10:00)
[2022-02-05] MEDS: PRENATAL VITAMINS W/ FOLIC ACID TABLET (FP) PO SCH (10:10)
[2022-02-05] MEDS: SULFAMETHOXAZOLE/TRIMETHOPRIM 800MG/160MG D.S. TABLET PO SCH ×2 (10:10→21:31)
[2022-02-05] MEDS: DOXYCYCLINE HYCLATE 100 MG TABLET PO SCH ×2 (10:12→17:22)
[2022-02-05] MEDS: NICOTINE 10 MG CARTRIDGE (INHALER) IH PRN (10:13)
[2022-02-05] MEDS: NICOTINE 7 MG/24 HOURS TOPICAL PATCH TD SCH (10:13)
[2022-02-05] MEDS: THIAMINE HCL 100 MG TABLET (FP) PO SCH (21:31)
[2022-02-05] MEDS: MELATONIN 5 MG TABLETS PO SCH (21:31)
[2022-02-06] MEDS: INSULIN SLIDING SCALE (NOVOLOG) 1 VIAL SQ SCH ×2 (06:15→17:15)
[2022-02-06] MEDS: NICOTINE 7 MG/24 HOURS TOPICAL PATCH TD SCH (10:13)
[2022-02-06] MEDS: SULFAMETHOXAZOLE/TRIMETHOPRIM 800MG/160MG D.S. TABLET PO SCH ×2 (10:13→21:45)
[2022-02-06] MEDS: PRENATAL VITAMINS W/ FOLIC ACID TABLET (FP) PO SCH (10:13)
[2022-02-06] MEDS: IBUPROFEN 400 MG TABLET (FP) PO PRN (10:16)
[2022-02-06] MEDS: hydrOXYzine PAMOATE 25 MG CAPSULE (FP) PO PRN (10:16)
[2022-02-06] MEDS: DOXYCYCLINE HYCLATE 100 MG TABLET PO SCH ×2 (13:21→17:53)
[2022-02-06] MEDS ORDERED: INSULIN (NOVOLOG) ASPART 100 UNITS/ML 10ML VIAL ONE (17:09)
[2022-02-06] MEDS: MELATONIN 5 MG TABLETS PO SCH (21:45)
[2022-02-06] MEDS: THIAMINE HCL 100 MG TABLET (FP) PO SCH (21:45)
[2022-02-06] MEDS: risperiDONE 1 MG TABLET PO SCH (21:46)
[2022-02-07] MEDS: INSULIN SLIDING SCALE (NOVOLOG) 1 VIAL SQ SCH ×2 (06:29→16:54)
[2022-02-07] MEDS: NICOTINE 7 MG/24 HOURS TOPICAL PATCH TD SCH (10:11)
[2022-02-07] MEDS: PRENATAL VITAMINS W/ FOLIC ACID TABLET (FP) PO SCH (10:11)
[2022-02-07] MEDS: hydrOXYzine PAMOATE 25 MG CAPSULE (FP) PO PRN (10:11)
[2022-02-07] MEDS: DOXYCYCLINE HYCLATE 100 MG TABLET PO SCH ×2 (10:12→17:12)
[2022-02-07] MEDS: SULFAMETHOXAZOLE/TRIMETHOPRIM 800MG/160MG D.S. TABLET PO SCH ×2 (10:12→21:35)
[2022-02-07] MEDS: CYCLOBENZAPRINE HCL 10 MG TABLET (FP) PO PRN (17:14)
[2022-02-07] MEDS: MELATONIN 5 MG TABLETS PO SCH (21:35)
[2022-02-07] MEDS: THIAMINE HCL 100 MG TABLET (FP) PO SCH (21:35)
[2022-02-07] MEDS: risperiDONE 1 MG TABLET PO SCH (21:35)
[2022-02-08] MEDS: INSULIN SLIDING SCALE (NOVOLOG) 1 VIAL SQ SCH ×2 (06:30→16:29)
[2022-02-08] MEDS: NICOTINE 10 MG CARTRIDGE (INHALER) IH PRN (06:37)
[2022-02-08] MEDS: SULFAMETHOXAZOLE/TRIMETHOPRIM 800MG/160MG D.S. TABLET PO SCH ×2 (10:08→21:42)
[2022-02-08] MEDS: NICOTINE 7 MG/24 HOURS TOPICAL PATCH TD SCH (10:08)
[2022-02-08] MEDS: PRENATAL VITAMINS W/ FOLIC ACID TABLET (FP) PO SCH (10:08)
[2022-02-08] MEDS: DOXYCYCLINE HYCLATE 100 MG TABLET PO SCH ×2 (10:08→17:15)
[2022-02-08] MEDS: hydrOXYzine PAMOATE 25 MG CAPSULE (FP) PO PRN (10:10)
[2022-02-08] MEDS: CYCLOBENZAPRINE HCL 10 MG TABLET (FP) PO PRN (10:10)
[2022-02-08] MEDS: risperiDONE 1 MG TABLET PO SCH (21:42)
[2022-02-08] MEDS: THIAMINE HCL 100 MG TABLET (FP) PO SCH (21:42)
[2022-02-08] MEDS: MELATONIN 5 MG TABLETS PO SCH (21:42)
[2022-02-09] MEDS: INSULIN SLIDING SCALE (NOVOLOG) 1 VIAL SQ SCH ×2 (06:19→16:52)
[2022-02-09] MEDS: NICOTINE 10 MG CARTRIDGE (INHALER) IH PRN (08:47)
[2022-02-09] MEDS: hydrOXYzine PAMOATE 25 MG CAPSULE (FP) PO PRN (10:25)
[2022-02-09] MEDS: NICOTINE 7 MG/24 HOURS TOPICAL PATCH TD SCH (10:25)
[2022-02-09] MEDS: DOXYCYCLINE HYCLATE 100 MG TABLET PO SCH ×2 (10:25→17:03)
[2022-02-09] MEDS: PRENATAL VITAMINS W/ FOLIC ACID TABLET (FP) PO SCH (10:25)
[2022-02-09] MEDS: SULFAMETHOXAZOLE/TRIMETHOPRIM 800MG/160MG D.S. TABLET PO SCH ×2 (10:25→21:21)
[2022-02-09] MEDS: CYCLOBENZAPRINE HCL 10 MG TABLET (FP) PO PRN (10:26)
[2022-02-09] MEDS: THIAMINE HCL 100 MG TABLET (FP) PO SCH (21:21)
[2022-02-09] MEDS: MELATONIN 5 MG TABLETS PO SCH (21:21)
[2022-02-09] MEDS: risperiDONE 1 MG TABLET PO SCH (21:21)
[2022-02-10] MEDS: INSULIN SLIDING SCALE (NOVOLOG) 1 VIAL SQ SCH ×2 (06:40→16:44)
[2022-02-10] MEDS: NICOTINE 7 MG/24 HOURS TOPICAL PATCH TD SCH (10:14)
[2022-02-10] MEDS: SULFAMETHOXAZOLE/TRIMETHOPRIM 800MG/160MG D.S. TABLET PO SCH ×2 (10:14→21:16)
[2022-02-10] MEDS: hydrOXYzine PAMOATE 25 MG CAPSULE (FP) PO PRN (10:14)
[2022-02-10] MEDS: DOXYCYCLINE HYCLATE 100 MG TABLET PO SCH ×2 (10:14→17:07)
[2022-02-10] MEDS: PRENATAL VITAMINS W/ FOLIC ACID TABLET (FP) PO SCH (10:14)
[2022-02-10] MEDS: CYCLOBENZAPRINE HCL 10 MG TABLET (FP) PO PRN (10:15)
[2022-02-10] MEDS: risperiDONE 1 MG TABLET PO SCH (21:16)
[2022-02-10] MEDS: MELATONIN 5 MG TABLETS PO SCH (21:16)
[2022-02-10] MEDS: THIAMINE HCL 100 MG TABLET (FP) PO SCH (21:16)
[2022-02-11] MEDS: NICOTINE 10 MG CARTRIDGE (INHALER) IH PRN (06:26)
[2022-02-11] MEDS: INSULIN SLIDING SCALE (NOVOLOG) 1 VIAL SQ SCH ×2 (06:27→16:47)
[2022-02-11] MEDS: IBUPROFEN 400 MG TABLET (FP) PO PRN ×2 (07:18→22:14)
[2022-02-11] MEDS: CYCLOBENZAPRINE HCL 10 MG TABLET (FP) PO PRN (10:34)
[2022-02-11] MEDS: hydrOXYzine PAMOATE 25 MG CAPSULE (FP) PO PRN ×2 (10:34→21:40)
[2022-02-11] MEDS: DOXYCYCLINE HYCLATE 100 MG TABLET PO SCH ×2 (10:34→17:45)
[2022-02-11] MEDS: PRENATAL VITAMINS W/ FOLIC ACID TABLET (FP) PO SCH (10:34)
[2022-02-11] MEDS: SULFAMETHOXAZOLE/TRIMETHOPRIM 800MG/160MG D.S. TABLET PO SCH ×2 (10:34→21:38)
[2022-02-11] MEDS: NICOTINE 7 MG/24 HOURS TOPICAL PATCH TD SCH (10:35)
[2022-02-11] MEDS: risperiDONE 1 MG TABLET PO SCH (21:38)
[2022-02-11] MEDS: THIAMINE HCL 100 MG TABLET (FP) PO SCH (21:38)
[2022-02-11] MEDS: MELATONIN 5 MG TABLETS PO SCH (21:39)
[2022-02-12] MEDS: INSULIN SLIDING SCALE (NOVOLOG) 1 VIAL SQ SCH ×2 (06:48→16:32)
[2022-02-12] MEDS: NICOTINE 7 MG/24 HOURS TOPICAL PATCH TD SCH (10:23)
[2022-02-12] MEDS: PRENATAL VITAMINS W/ FOLIC ACID TABLET (FP) PO SCH (10:23)
[2022-02-12] MEDS: hydrOXYzine PAMOATE 25 MG CAPSULE (FP) PO PRN (10:24)
[2022-02-12] MEDS: SULFAMETHOXAZOLE/TRIMETHOPRIM 800MG/160MG D.S. TABLET PO SCH ×2 (10:24→21:32)
[2022-02-12] MEDS: NICOTINE 10 MG CARTRIDGE (INHALER) IH PRN (10:25)
[2022-02-12] MEDS: CYCLOBENZAPRINE HCL 10 MG TABLET (FP) PO PRN ×2 (10:25→21:35)
[2022-02-12] MEDS ORDERED: INSULIN (NOVOLOG) ASPART 100 UNITS/ML 10ML VIAL ONE (16:23)
[2022-02-12] MEDS: risperiDONE 1 MG TABLET PO SCH (21:32)
[2022-02-12] MEDS: THIAMINE HCL 100 MG TABLET (FP) PO SCH (21:32)
[2022-02-12] MEDS ORDERED: SUVOREXANT 10 MG TABLET PO PRN (22:00)
[2022-02-13] MEDS: NICOTINE 10 MG CARTRIDGE (INHALER) IH PRN ×2 (06:01→16:26)
[2022-02-13] MEDS: INSULIN SLIDING SCALE (NOVOLOG) 1 VIAL SQ SCH ×2 (06:06→16:26)
[2022-02-13] MEDS: PRENATAL VITAMINS W/ FOLIC ACID TABLET (FP) PO SCH (10:07)
[2022-02-13] MEDS: hydrOXYzine PAMOATE 25 MG CAPSULE (FP) PO PRN (10:08)
[2022-02-13] MEDS: SULFAMETHOXAZOLE/TRIMETHOPRIM 800MG/160MG D.S. TABLET PO SCH ×2 (10:08→21:25)
[2022-02-13] MEDS: CYCLOBENZAPRINE HCL 10 MG TABLET (FP) PO PRN ×2 (10:08→21:26)
[2022-02-13] MEDS: NICOTINE 7 MG/24 HOURS TOPICAL PATCH TD SCH (10:08)
[2022-02-13] MEDS: risperiDONE 1 MG TABLET PO SCH (21:25)
[2022-02-13] MEDS: THIAMINE HCL 100 MG TABLET (FP) PO SCH (21:25)
[2022-02-14] MEDS: NICOTINE 10 MG CARTRIDGE (INHALER) IH PRN ×2 (06:09→10:30)
[2022-02-14] MEDS: INSULIN SLIDING SCALE (NOVOLOG) 1 VIAL SQ SCH ×2 (06:10→16:41)
[2022-02-14] MEDS: SULFAMETHOXAZOLE/TRIMETHOPRIM 800MG/160MG D.S. TABLET PO SCH (10:29)
[2022-02-14] MEDS: hydrOXYzine PAMOATE 25 MG CAPSULE (FP) PO PRN (10:29)
[2022-02-14] MEDS: NICOTINE 7 MG/24 HOURS TOPICAL PATCH TD SCH (10:29)
[2022-02-14] MEDS: PRENATAL VITAMINS W/ FOLIC ACID TABLET (FP) PO SCH (10:29)
[2022-02-14] MEDS: CYCLOBENZAPRINE HCL 10 MG TABLET (FP) PO PRN ×2 (10:29→21:37)
[2022-02-14] MEDS: IBUPROFEN 400 MG TABLET (FP) PO PRN (18:14)
[2022-02-14] MEDS: THIAMINE HCL 100 MG TABLET (FP) PO SCH (21:37)
[2022-02-14] MEDS: diphenhydrAMINE HCL 25 MG CAPSULE (FP) PO PRN (21:37)
[2022-02-14] MEDS: risperiDONE 1 MG TABLET PO SCH (21:37)
[2022-02-15] MEDS: NICOTINE 10 MG CARTRIDGE (INHALER) IH PRN ×2 (05:59→10:51)
[2022-02-15] MEDS ORDERED: methaDONE HCL 10 MG TABLET PO SCH (06:00)
[2022-02-15] MEDS ORDERED: INSULIN (NOVOLOG) ASPART 100 UNITS/ML 10ML VIAL ONE (06:08)
[2022-02-15] MEDS ORDERED: metFORMIN HCL 500 MG TABLET (FP) PO ONE (07:39)
[2022-02-15] MEDS: INSULIN SLIDING SCALE (NOVOLOG) 1 VIAL SQ SCH (07:40)
[2022-02-15] MEDS: PRENATAL VITAMINS W/ FOLIC ACID TABLET (FP) PO SCH (10:22)
[2022-02-15] MEDS: hydrOXYzine PAMOATE 25 MG CAPSULE (FP) PO PRN (10:22)
[2022-02-15] MEDS: NICOTINE 7 MG/24 HOURS TOPICAL PATCH TD SCH (10:23)
[2022-02-15] MEDS: CYCLOBENZAPRINE HCL 10 MG TABLET (FP) PO PRN (10:23)
[2022-02-15] MEDS: metFORMIN HCL 500 MG TABLET (FP) PO SCH (16:50)
[2022-02-15] MEDS: risperiDONE 1 MG TABLET PO SCH (21:28)
[2022-02-15] MEDS: THIAMINE HCL 100 MG TABLET (FP) PO SCH (21:28)
[2022-02-15] MEDS: diphenhydrAMINE HCL 25 MG CAPSULE (FP) PO PRN (21:29)
[2022-02-16] MEDS: NICOTINE 10 MG CARTRIDGE (INHALER) IH PRN ×3 (06:21→17:11)
[2022-02-16] MEDS: metFORMIN HCL 500 MG TABLET (FP) PO SCH ×2 (08:49→17:13)
[2022-02-16] MEDS: NICOTINE 7 MG/24 HOURS TOPICAL PATCH TD SCH (09:56)
[2022-02-16] MEDS: PRENATAL VITAMINS W/ FOLIC ACID TABLET (FP) PO SCH (09:56)
[2022-02-16] MEDS: CYCLOBENZAPRINE HCL 10 MG TABLET (FP) PO PRN ×2 (09:57→21:32)
[2022-02-16] MEDS: risperiDONE 1 MG TABLET PO SCH (21:32)
[2022-02-16] MEDS: diphenhydrAMINE HCL 25 MG CAPSULE (FP) PO PRN (21:32)
[2022-02-16] MEDS: THIAMINE HCL 100 MG TABLET (FP) PO SCH (21:32)
[2022-02-17] MEDS: metFORMIN HCL 500 MG TABLET (FP) PO SCH ×2 (06:03→17:03)
[2022-02-17] MEDS: NICOTINE 10 MG CARTRIDGE (INHALER) IH PRN (07:04)
[2022-02-17] MEDS: PRENATAL VITAMINS W/ FOLIC ACID TABLET (FP) PO SCH (10:01)
[2022-02-17] MEDS: NICOTINE 7 MG/24 HOURS TOPICAL PATCH TD SCH (10:02)
[2022-02-17] MEDS: hydrOXYzine PAMOATE 25 MG CAPSULE (FP) PO PRN ×2 (10:03→21:45)
[2022-02-17] MEDS: CYCLOBENZAPRINE HCL 10 MG TABLET (FP) PO PRN ×2 (10:03→21:45)
[2022-02-17] MEDS: risperiDONE 1 MG TABLET PO SCH (21:45)
[2022-02-17] MEDS: diphenhydrAMINE HCL 25 MG CAPSULE (FP) PO PRN (21:45)
[2022-02-17] MEDS: THIAMINE HCL 100 MG TABLET (FP) PO SCH (21:45)
[2022-02-18] MEDS: metFORMIN HCL 500 MG TABLET (FP) PO SCH ×2 (06:02→17:04)
[2022-02-18] MEDS: NICOTINE 10 MG CARTRIDGE (INHALER) IH PRN ×3 (06:03→17:28)
[2022-02-18] MEDS: CYCLOBENZAPRINE HCL 10 MG TABLET (FP) PO PRN ×2 (10:10→21:45)
[2022-02-18] MEDS: hydrOXYzine PAMOATE 25 MG CAPSULE (FP) PO PRN ×2 (10:10→21:43)
[2022-02-18] MEDS: PRENATAL VITAMINS W/ FOLIC ACID TABLET (FP) PO SCH (10:10)
[2022-02-18] MEDS: NICOTINE 7 MG/24 HOURS TOPICAL PATCH TD SCH (10:11)
[2022-02-18] MEDS: risperiDONE 1 MG TABLET PO SCH (21:43)
[2022-02-18] MEDS: THIAMINE HCL 100 MG TABLET (FP) PO SCH (21:43)
[2022-02-19] MEDS: metFORMIN HCL 500 MG TABLET (FP) PO SCH ×2 (06:00→16:54)
[2022-02-19] MEDS: hydrOXYzine PAMOATE 25 MG CAPSULE (FP) PO PRN ×2 (10:23→21:54)
[2022-02-19] MEDS: PRENATAL VITAMINS W/ FOLIC ACID TABLET (FP) PO SCH (10:23)
[2022-02-19] MEDS: CYCLOBENZAPRINE HCL 10 MG TABLET (FP) PO PRN ×2 (10:23→21:54)
[2022-02-19] MEDS: NICOTINE 7 MG/24 HOURS TOPICAL PATCH TD SCH (10:23)
[2022-02-19] MEDS: NICOTINE 10 MG CARTRIDGE (INHALER) IH PRN ×2 (10:24→16:55)
[2022-02-19] MEDS: THIAMINE HCL 100 MG TABLET (FP) PO SCH (21:53)
[2022-02-19] MEDS: risperiDONE 1 MG TABLET PO SCH (21:53)
[2022-02-20] MEDS: metFORMIN HCL 500 MG TABLET (FP) PO SCH ×2 (06:30→16:52)
[2022-02-20] MEDS: NICOTINE 10 MG CARTRIDGE (INHALER) IH PRN ×2 (06:53→10:25)
[2022-02-20] MEDS: PRENATAL VITAMINS W/ FOLIC ACID TABLET (FP) PO SCH (10:23)
[2022-02-20] MEDS: hydrOXYzine PAMOATE 25 MG CAPSULE (FP) PO PRN ×2 (10:23→21:39)
[2022-02-20] MEDS: NICOTINE 7 MG/24 HOURS TOPICAL PATCH TD SCH (10:23)
[2022-02-20] MEDS: CYCLOBENZAPRINE HCL 10 MG TABLET (FP) PO PRN ×2 (10:24→21:39)
[2022-02-20] MEDS: risperiDONE 1 MG TABLET PO SCH (21:38)
[2022-02-20] MEDS: THIAMINE HCL 100 MG TABLET (FP) PO SCH (21:38)
[2022-02-21] MEDS: metFORMIN HCL 500 MG TABLET (FP) PO SCH ×2 (06:25→16:46)
[2022-02-21] MEDS: NICOTINE 10 MG CARTRIDGE (INHALER) IH PRN ×3 (06:26→16:51)
[2022-02-21] MEDS: CYCLOBENZAPRINE HCL 10 MG TABLET (FP) PO PRN ×2 (10:19→21:40)
[2022-02-21] MEDS: NICOTINE 7 MG/24 HOURS TOPICAL PATCH TD SCH (10:19)
[2022-02-21] MEDS: PRENATAL VITAMINS W/ FOLIC ACID TABLET (FP) PO SCH (10:19)
[2022-02-21] MEDS: hydrOXYzine PAMOATE 25 MG CAPSULE (FP) PO PRN ×2 (10:19→21:40)
[2022-02-21] MEDS: THIAMINE HCL 100 MG TABLET (FP) PO SCH (21:39)
[2022-02-21] MEDS: risperiDONE 1 MG TABLET PO SCH (21:39)
[2022-02-22] MEDS: metFORMIN HCL 500 MG TABLET (FP) PO SCH ×2 (06:20→16:45)
[2022-02-22] MEDS: PRENATAL VITAMINS W/ FOLIC ACID TABLET (FP) PO SCH (10:22)
[2022-02-22] MEDS: hydrOXYzine PAMOATE 25 MG CAPSULE (FP) PO PRN ×2 (10:23→21:40)
[2022-02-22] MEDS: CYCLOBENZAPRINE HCL 10 MG TABLET (FP) PO PRN ×2 (10:23→21:40)
[2022-02-22] MEDS: NICOTINE 10 MG CARTRIDGE (INHALER) IH PRN (10:23)
[2022-02-22] MEDS: NICOTINE 7 MG/24 HOURS TOPICAL PATCH TD SCH (10:35)
[2022-02-22] MEDS: THIAMINE HCL 100 MG TABLET (FP) PO SCH (21:39)
[2022-02-22] MEDS: risperiDONE 1 MG TABLET PO SCH (21:39)
[2022-02-23] MEDS: metFORMIN HCL 500 MG TABLET (FP) PO SCH ×2 (06:07→16:56)
[2022-02-23] MEDS: NICOTINE 10 MG CARTRIDGE (INHALER) IH PRN ×2 (07:01→10:14)
[2022-02-23] MEDS: hydrOXYzine PAMOATE 25 MG CAPSULE (FP) PO PRN ×2 (10:13→21:39)
[2022-02-23] MEDS: CYCLOBENZAPRINE HCL 10 MG TABLET (FP) PO PRN ×2 (10:13→21:39)
[2022-02-23] MEDS: PRENATAL VITAMINS W/ FOLIC ACID TABLET (FP) PO SCH (10:13)
[2022-02-23] MEDS: NICOTINE 7 MG/24 HOURS TOPICAL PATCH TD SCH (10:14)
[2022-02-23] MEDS: THIAMINE HCL 100 MG TABLET (FP) PO SCH (21:39)
[2022-02-23] MEDS: risperiDONE 1 MG TABLET PO SCH (21:39)
[2022-02-24] MEDS: metFORMIN HCL 500 MG TABLET (FP) PO SCH ×2 (06:00→16:56)
[2022-02-24] MEDS: NICOTINE 10 MG CARTRIDGE (INHALER) IH PRN ×3 (06:02→22:10)
[2022-02-24] MEDS: PRENATAL VITAMINS W/ FOLIC ACID TABLET (FP) PO SCH (11:10)
[2022-02-24] MEDS: hydrOXYzine PAMOATE 25 MG CAPSULE (FP) PO PRN ×2 (11:10→21:39)
[2022-02-24] MEDS: NICOTINE 7 MG/24 HOURS TOPICAL PATCH TD SCH (11:10)
[2022-02-24] MEDS: CYCLOBENZAPRINE HCL 10 MG TABLET (FP) PO PRN ×2 (11:10→21:39)
[2022-02-24] MEDS: risperiDONE 1 MG TABLET PO SCH (21:39)
[2022-02-24] MEDS: THIAMINE HCL 100 MG TABLET (FP) PO SCH (21:39)
[2022-02-25] MEDS: metFORMIN HCL 500 MG TABLET (FP) PO SCH ×2 (06:29→16:31)
[2022-02-25] MEDS: PRENATAL VITAMINS W/ FOLIC ACID TABLET (FP) PO SCH ×2 (11:01→12:08)
[2022-02-25] MEDS: NICOTINE 7 MG/24 HOURS TOPICAL PATCH TD SCH (11:01)
[2022-02-25] MEDS: NICOTINE 10 MG CARTRIDGE (INHALER) IH PRN ×2 (12:08→16:32)
[2022-02-25] MEDS: CYCLOBENZAPRINE HCL 10 MG TABLET (FP) PO PRN ×2 (12:08→21:40)
[2022-02-25] MEDS: hydrOXYzine PAMOATE 25 MG CAPSULE (FP) PO PRN ×2 (12:08→21:38)
[2022-02-25] MEDS: risperiDONE 1 MG TABLET PO SCH (21:38)
[2022-02-25] MEDS: THIAMINE HCL 100 MG TABLET (FP) PO SCH (21:38)
[2022-02-26] MEDS: metFORMIN HCL 500 MG TABLET (FP) PO SCH ×2 (06:10→16:34)
[2022-02-26] MEDS: NICOTINE 10 MG CARTRIDGE (INHALER) IH PRN ×2 (07:29→21:30)
[2022-02-26] MEDS: PRENATAL VITAMINS W/ FOLIC ACID TABLET (FP) PO SCH (10:16)
[2022-02-26] MEDS: NICOTINE 7 MG/24 HOURS TOPICAL PATCH TD SCH (10:16)
[2022-02-26] MEDS: hydrOXYzine PAMOATE 25 MG CAPSULE (FP) PO PRN ×2 (10:16→21:29)
[2022-02-26] MEDS: CYCLOBENZAPRINE HCL 10 MG TABLET (FP) PO PRN ×2 (10:16→21:29)
[2022-02-26] MEDS ORDERED: PNEUMOC 20-VAL CONJ-DIP CRM/PF 0.5 ML SYRINGE IM ONE (12:00)
[2022-02-26] MEDS: risperiDONE 1 MG TABLET PO SCH (21:29)
[2022-02-26] MEDS: THIAMINE HCL 100 MG TABLET (FP) PO SCH (21:29)
[2022-02-27] MEDS: NICOTINE 10 MG CARTRIDGE (INHALER) IH PRN ×2 (05:58→10:14)
[2022-02-27] MEDS: metFORMIN HCL 500 MG TABLET (FP) PO SCH ×2 (06:02→16:31)
[2022-02-27] MEDS: NICOTINE 7 MG/24 HOURS TOPICAL PATCH TD SCH (10:14)
[2022-02-27] MEDS: hydrOXYzine PAMOATE 25 MG CAPSULE (FP) PO PRN (10:15)
[2022-02-27] MEDS: PRENATAL VITAMINS W/ FOLIC ACID TABLET (FP) PO SCH (10:15)
[2022-02-27] MEDS: CYCLOBENZAPRINE HCL 10 MG TABLET (FP) PO PRN (10:15)
[2022-02-27] MEDS: THIAMINE HCL 100 MG TABLET (FP) PO SCH (21:44)
[2022-02-27] MEDS: risperiDONE 1 MG TABLET PO SCH (21:44)
[2022-02-27] MEDS: diphenhydrAMINE HCL 25 MG CAPSULE (FP) PO PRN (21:46)
[2022-02-28] MEDS: NICOTINE 10 MG CARTRIDGE (INHALER) IH PRN ×3 (05:51→16:42)
[2022-02-28] MEDS: metFORMIN HCL 500 MG TABLET (FP) PO SCH ×2 (06:37→16:41)
[2022-02-28] MEDS: PRENATAL VITAMINS W/ FOLIC ACID TABLET (FP) PO SCH (09:58)
[2022-02-28] MEDS: NICOTINE 7 MG/24 HOURS TOPICAL PATCH TD SCH (09:58)
[2022-02-28] MEDS: hydrOXYzine PAMOATE 25 MG CAPSULE (FP) PO PRN (21:30)
[2022-02-28] MEDS: CYCLOBENZAPRINE HCL 10 MG TABLET (FP) PO PRN (21:30)
[2022-02-28] MEDS: risperiDONE 1 MG TABLET PO SCH (21:30)
[2022-02-28] MEDS: THIAMINE HCL 100 MG TABLET (FP) PO SCH (21:30)
[2022-03-01] MEDS: metFORMIN HCL 500 MG TABLET (FP) PO SCH ×2 (06:19→16:24)
[2022-03-01] MEDS: NICOTINE 10 MG CARTRIDGE (INHALER) IH PRN ×3 (06:20→16:24)
[2022-03-01] MEDS: PRENATAL VITAMINS W/ FOLIC ACID TABLET (FP) PO SCH (10:09)
[2022-03-01] MEDS: CYCLOBENZAPRINE HCL 10 MG TABLET (FP) PO PRN ×2 (10:09→21:26)
[2022-03-01] MEDS: NICOTINE 7 MG/24 HOURS TOPICAL PATCH TD SCH (10:09)
[2022-03-01] MEDS: hydrOXYzine PAMOATE 25 MG CAPSULE (FP) PO PRN ×2 (10:09→21:26)
[2022-03-01] MEDS: risperiDONE 1 MG TABLET PO SCH (21:26)
[2022-03-01] MEDS: THIAMINE HCL 100 MG TABLET (FP) PO SCH (21:26)
[2022-03-02] MEDS: metFORMIN HCL 500 MG TABLET (FP) PO SCH ×2 (06:18→16:33)
[2022-03-02 06:51] VITALS: RESP 18
[2022-03-02] MEDS: NICOTINE 10 MG CARTRIDGE (INHALER) IH PRN ×2 (07:16→15:34)
[2022-03-02] MEDS: PRENATAL VITAMINS W/ FOLIC ACID TABLET (FP) PO SCH (09:53)
[2022-03-02] MEDS: NICOTINE 7 MG/24 HOURS TOPICAL PATCH TD SCH (09:53)
[2022-03-02] MEDS: hydrOXYzine PAMOATE 25 MG CAPSULE (FP) PO PRN (21:27)
[2022-03-02] MEDS: CYCLOBENZAPRINE HCL 10 MG TABLET (FP) PO PRN (21:27)
[2022-03-02] MEDS: THIAMINE HCL 100 MG TABLET (FP) PO SCH (21:27)
[2022-03-02] MEDS: risperiDONE 1 MG TABLET PO SCH (21:27)
[2022-03-03] MEDS: metFORMIN HCL 500 MG TABLET (FP) PO SCH ×2 (06:17→16:19)
[2022-03-03] MEDS: NICOTINE 10 MG CARTRIDGE (INHALER) IH PRN ×4 (06:23→21:37)
[2022-03-03] MEDS: PRENATAL VITAMINS W/ FOLIC ACID TABLET (FP) PO SCH (09:42)
[2022-03-03] MEDS: hydrOXYzine PAMOATE 25 MG CAPSULE (FP) PO PRN ×2 (09:43→21:36)
[2022-03-03] MEDS: NICOTINE 7 MG/24 HOURS TOPICAL PATCH TD SCH (09:43)
[2022-03-03] MEDS: CYCLOBENZAPRINE HCL 10 MG TABLET (FP) PO PRN (21:35)
[2022-03-03] MEDS: THIAMINE HCL 100 MG TABLET (FP) PO SCH (21:36)
[2022-03-03] MEDS: risperiDONE 1 MG TABLET PO SCH (21:36)
[2022-03-04] MEDS: metFORMIN HCL 500 MG TABLET (FP) PO SCH ×2 (06:08→16:32)
[2022-03-04] MEDS: PRENATAL VITAMINS W/ FOLIC ACID TABLET (FP) PO SCH (09:02)
[2022-03-04] MEDS: NICOTINE 7 MG/24 HOURS TOPICAL PATCH TD SCH (09:02)
[2022-03-04] MEDS: NICOTINE 10 MG CARTRIDGE (INHALER) IH PRN ×2 (13:57→21:28)
[2022-03-04] MEDS: hydrOXYzine PAMOATE 25 MG CAPSULE (FP) PO PRN (21:27)
[2022-03-04] MEDS: CYCLOBENZAPRINE HCL 10 MG TABLET (FP) PO PRN (21:27)
[2022-03-04] MEDS: risperiDONE 1 MG TABLET PO SCH (21:27)
[2022-03-04] MEDS: THIAMINE HCL 100 MG TABLET (FP) PO SCH (21:27)
[2022-03-05] MEDS: metFORMIN HCL 500 MG TABLET (FP) PO SCH (06:38)
[2022-03-05] MEDS: NICOTINE 10 MG CARTRIDGE (INHALER) IH PRN (06:40)
[2022-03-05 07:13] VITALS: BP 116/68; PULSE 86; TEMP 97.1
[2022-03-05] MEDS: PRENATAL VITAMINS W/ FOLIC ACID TABLET (FP) PO SCH (09:21)
[2022-03-05] MEDS: hydrOXYzine PAMOATE 25 MG CAPSULE (FP) PO PRN (09:22)
[2022-03-05] MEDS: NICOTINE 7 MG/24 HOURS TOPICAL PATCH TD SCH (09:22)
[2022-03-05] MEDS: CYCLOBENZAPRINE HCL 10 MG TABLET (FP) PO PRN (09:22)
[2022-03-05] MEDS ORDERED: IBUPROFEN 400 MG TABLET (FP) PO PRN ×2 (19:03)
== END 2022-03-05 09:45 | disposition other institution (70) | DRG 772 ==
LOC: YASAS 16:22 → Y3E 21:06 → Y5N 02-05 15:54
PROVIDERS: ADMIT Allergy & Immunology; ATTEND Psychiatry & Neurology Psychiatry
PROC: HZ42ZZZ Group Counseling for Substance Abuse Treatment, Cognitive-Behavioral (ICD-10-PCS; principal; 2022-02-04)
DX: F11.20 Opioid dependence, uncomplicated (principal); F14.20 Cocaine dependence, uncomplicated; F12.20 Cannabis dependence, uncomplicated; F17.210 Nicotine dependence, cigarettes, uncomplicated; F19.282 Other psychoactive substance dependence with psychoactive substance-induced sleep disorder; F39 Unspecified mood [affective] disorder; E11.65 Type 2 diabetes mellitus with hyperglycemia; Z79.84 Long term (current) use of oral hypoglycemic drugs; L03.114 Cellulitis of left upper limb; L97.821 Non-pressure chronic ulcer of other part of left lower leg limited to breakdown of skin; L97.811 Non-pressure chronic ulcer of other part of right lower leg limited to breakdown of skin; B18.2 Chronic viral hepatitis C; R21 Rash and other nonspecific skin eruption; Z56.0 Unemployment, unspecified; Z59.00 Homelessness unspecified
CPT/HCPCS: 81003; 82962; 87811; 90677; C9803-CS; J2794; U0003; U0005